=== PATIENT | female | born 1965 | race Caucasian/White ===

== ENCOUNTER → 2017-05-31 | Outpatient (CLI) | payer OTHER ==
[2016-01-17 09:52] VITALS: BP 147/91
[~2017-05-31] MED LIST: TRAM-48 PO
--- NOTE | 2017-05-31 10:34 | RAD ---
Exam performed: Complete abdominal sonogram. Indication:Abdominal pain and elevated liver function test Date of exam: 05/31/17. Comparison: None available Technique:Real time de luna scale imaging of the abdomen is performed and images are obtained. Findings : The liver is normal in size and echogenicity and measures 14.4 cm in length. No intra- or extrahepatic biliary dilatation is present. The common duct measures 2.6 mm . The gallbladder appears normal. The visualized portions of the pancreas are unremarkable. The spleen is normal in size. Both kidneys are unremarkable without evidence for hydronephrosis. Right kidney measures 10.7 x 5.3 x 4.2 and the left kidney measures 10.7 x 4.3 x 5.0. The inferior vena cava and aorta appear normal. Impression: Normal abdominal ultrasound.
== END | disposition home or self-care (01) ==
LOC: US 07:33
PROVIDERS: ATTEND Physician Assistant Medical
DX: R79.89 Other specified abnormal findings of blood chemistry (principal); R10.9 Unspecified abdominal pain
CPT/HCPCS: 76700